=== PATIENT | male | born 1990 ===

== ENCOUNTER 2017-06-11 10:56 | Emergency (ER) | payer SELFPAY ==
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
== END 2017-06-11 13:30 | disposition left against medical advice (07) ==
LOC: DL.ED 10:56
DX: M25.511 Pain in right shoulder (principal); M25.561 Pain in right knee; R51 Headache; Y04.0XXA Assault by unarmed brawl or fight, initial encounter; F17.210 Nicotine dependence, cigarettes, uncomplicated
CPT/HCPCS: 99283